=== PATIENT | male | born 1945 | race Caucasian/White ===

== ENCOUNTER 2016-09-11 18:54 | Emergency (ER) | payer MEDICARE, OTHER ==
[2016-09-11] MEDS ORDERED: Sodium Chloride 0.9% 10 ML Syringe FLUSH PRN (19:00)
--- NOTE | 2016-09-11 19:01 | EDM.PDOC ---
ED HISTORY OF PRESENT ILLNESS - General Chief Complaint: Chest Pain Stated Complaint: chest pain that started around 11am Time Seen by Provider: 09/11/16 18:59 Source of Information: Reports: Patient, Family, RN, RN notes reviewed History Limitations: Reports: No limitations - History of Present Illness INITIAL COMMENTS - FREE TEXT/NARRATIVE: Patient presents to the ED at [facility] complaining of chest pain that started around 11am today. Patient states he was sitting on the cough when he felt the pain start. Has mild SOB. No cardiac history. No radiation of the pain. Patient states he has been belching a lot today. No focal neurological deficits. Symptom Onset Date: 09/11/16 Symptom Onset Time: 11:00 Timing/Duration: Reports: Sudden onset, Waxing/waning Severity: moderate Location, General: Reports: chest Quality: Reports: Pressure Improves with: Reports: None Worsens with: Reports: None Context, General: Denies: Activity, Exercise, Lifting, Sick contact, Trauma Associated Symptoms (General): Reports: no other symptoms ED ROS GENERAL - Review of Systems Review Of Systems: See Below Constitutional: Denies: fever, chills, weakness Respiratory: Reports: Shortness of Breath. Denies: Cough Cardiovascular: Reports: Chest pain, Blood pressure problem. Denies: Lightheadedness, Palpitations GI/Abdominal: Denies: Abdominal pain, Nausea, Vomiting Skin: Reports: no symptoms Neurological: Denies: Dizziness, Headache, Numbness, Paresthesia, Tingling ED EXAM, GENERAL - Physical Exam Exam: See Below Exam Limited By: No limitations General Appearance: alert, no apparent distress Respiratory/Chest: no respiratory distress, lungs clear, normal breath sounds Cardiovascular: normal peripheral pulses, regular rate, rhythm, no edema Peripheral Pulses: 2+: radial (L), radial (R) GI/Abdominal: normal bowel sounds, soft, non tender Neurological: alert, oriented Skin Exam: Warm, Dry, Intact, Normal color, No rash EKG INTERPRETATION EKG Date: 09/11/16 Time: 18:51 Rhythm: NSR Rate (beats/min): 65 [place]: normal P-wave: present QRS: normal ST-T: normal QT: normal FL/PQ Interval: 0.15 Comparison: NA - no prior EKG EKG Interpretation Comments: 1. 18:51 Normal Sinus Rhythm Possible Septal infarct 2. 09/11/2016 19:27 Sinus Rhythm; possible septal infarct Course - Vital Signs Last Recorded V/S: Last Vital Signs Temp Pulse Resp BP 175/88 H 09/11/16 19:42 Pulse Ox - Orders/Labs/Meds Orders: Active Orders 24 hr Category Date Time Status EKG 12 Lead [EKG Documentation Completion] [RC] STAT Care 09/11/16 19:00 Active Chest 1V Frontal [CR] Stat Exams 09/11/16 19:44 Ordered Chest 2V [CR] Stat Exams 09/11/16 18:59 Stop Req CBC W/O DIFF,HEMOGRAM [HEME] Q3D Lab 09/12/16 07:00 Ordered CBC W/O DIFF,HEMOGRAM [HEME] Q3D Lab 09/15/16 07:00 Ordered CBC W/O DIFF,HEMOGRAM [HEME] Q3D Lab 09/18/16 07:00 Ordered CBC W/O DIFF,HEMOGRAM [HEME] Q3D Lab 09/21/16 07:00 Ordered CBC W/O DIFF,HEMOGRAM [HEME] Q3D Lab 09/24/16 07:00 Ordered CBC W/O DIFF,HEMOGRAM [HEME] Q3D Lab 09/27/16 07:00 Ordered CBC W/O DIFF,HEMOGRAM [HEME] Q3D Lab 09/30/16 07:00 Ordered Heparin Sodium/0.45% NaCl [Heparin 25,000 Units in 1/2 Med 09/11/16 20:00 Ordered NS 500 ML] 25,000 units in 500 ml IV TITRATE Sodium Chloride 0.9% [Saline Flush] Med 09/11/16 19:00 Active 10 ml FLUSH ASDIRECTED PRN Peripheral IV Insertion Adult [OM.PC] Routine Oth 09/11/16 19:00 Ordered Medication Orders Heparin Sodium/Sodium Chloride (Heparin 25,000 Units In 1/2 Ns 500 Ml) 25,000 units in 500 mls @ IV TITRATE VARINDER PRN Reason: 1,000 UNITS/KG/HR Sodium Chloride (Saline Flush) 10 ml FLUSH ASDIRECTED PRN PRN Reason: Keep Vein Open Last Admin: 09/11/16 19:25 Dose: 10 ml Labs: Laboratory Tests 09/11/16 09/11/16 09/11/16 Range/Units 19:10 19:10 19:16 WBC 11.3 H (4.0-10.0) x10^3/uL RBC 4.05 L (4.5-6.0) x10^6/uL Hgb 12.3 L (14.0-18.0) g/dL Hct 35.1 L (40.0-52.0) % MCV 86.7 (78.0-93.0) fL MCH 30.4 (26.0-32.0) pg MCHC 35.0 (32.0-36.0) g/dL RDW Coeff of Adrienne 13.1 (10.0-15.0) % Plt Count 208 (130-400) x10^3/uL Neut % (Auto) 64.9 (50.0-80.0) % Lymph % (Auto) 22.9 L (25.0-50.0) % [place] % (Auto) 9.1 (2.0-11.0) % Eos % (Auto) 2.4 (0.0-4.0) % Baso % (Auto) 0.7 (0.2-1.2) % Sodium 137 (136-145) mmol/L Potassium 4.1 (3.5-5.1) mmol/L Chloride 100 (98-107) mmol/L Carbon Dioxide 28 (21-32) mmol/L BUN 13 (7-18) mg/dL Creatinine 1.0 (0.70-1.30) mg/dL Est Cr Clr Drug Dosing TNP Estimated GFR (MDRD) > 60 Glucose 122 H (74-106) mg/dL Calcium 8.9 (8.5-10.1) mg/dL Creatine Kinase 534 H* (39-308) U/L Creatine Kinase Index 19.1 H (0.0-4.0) % CK-MB (CK-2) 102.1 H (0.0-3.6) ng/mL POC Troponin I 4.32 H* (0.00-0.08) ng/mL POC Result Comm Meds: Medications Generic Name Dose Route Start Last Admin Trade Name Freq PRN Reason Stop Dose Admin Heparin Sodium/Sodium Chloride 25,000 units in 500 mls @ 09/11/16 20:00 Heparin 25,000 Units In 1/2 Ns 500 Ml IV TITRATE VARINDER 1,000 UNITS/KG/HR Sodium Chloride 10 ml 09/11/16 19:00 09/11/16 19:25 Saline Flush FLUSH 10 ml ASDIRECTED PRN Administration Keep Vein Open Discontinued Medications Generic Name Dose Route Start Last Admin Trade Name [place] PRN Reason Stop Dose Admin Al Hydroxide/Mg Hydroxide 30 ml 09/11/16 19:13 09/11/16 19:32 Gi Cocktail PO 09/11/16 19:14 30 ml ONETIME ONE Administration Aspirin 324 mg 09/11/16 19:36 09/11/16 19:44 Aspirin PO 09/11/16 19:37 Not Given ONETIME ONE Aspirin 324 mg 09/11/16 19:54 Aspirin PO 09/11/16 19:55 ONETIME ONE Al Hydroxide/Mg Hydroxide 10 0 ml 09/11/16 19:07 09/11/16 19:32 ml/ Lidocaine HCl 10 ml/ PO 09/11/16 19:08 Not Given Promethazine HCl 12.5 mg ONETIME ONE Famotidine 20 mg 09/11/16 19:07 09/11/16 19:24 Pepcid IVPUSH 09/11/16 19:08 20 mg ONETIME ONE Administration Heparin Sodium (Porcine) 4,000 units 09/11/16 19:56 Heparin Sodium IVPUSH 09/11/16 19:57 ONETIME ONE Nitroglycerin 0.4 mg 09/11/16 19:38 09/11/16 19:42 Nitrostat SL 09/11/16 19:39 0.4 mg ONETIME ONE Administration Nitroglycerin 0.4 mg 09/11/16 19:54 Nitrostat SL 09/11/16 19:55 ONETIME ONE Pantoprazole Sodium 40 mg 09/11/16 19:07 09/11/16 19:25 Protonix Iv IVPUSH 09/11/16 19:08 40 mg ONETIME ONE Administration - Re-Assessments/Exams Free Text/Narrative Re-Assessment/Exam: 09/11/16 19:[address] Hanna, accepting provider [facility]. Family and patient updated on condition and transfer. Departure - Departure Time of Disposition: 20:02 Disposition: DC/Tfer to [facility] 02 Reason for Transfer *Q: Primary PCI Indicated Condition: fair Clinical Impression: Unstable angina, Troponin level elevated Forms: [facility] - ED Communication Date/Time Date: 09/11/16 Time Called: 19:53 - Discussed Case With (1) Discussed Case With (1): Admitting Provider (Dr. Hanna) - Conversation Summary Admitting Provider Agreed to Patient's Admission: Yes Summary Comment: Patient will be transferred to [facility]. Dr. Hanna is admitting provider. Full report given to accepting provider. - Problem List Review Problem List Initiated/Reviewed/Updated: Yes - My Orders Last 24 Hours: My Active Orders 09/11/16 18:59 Chest 2V [CR] Stat 09/11/16 19:00 EKG 12 Lead [EKG Documentation Completion] [RC] STAT Sodium Chloride 0.9% [Saline Flush] 10 ml FLUSH ASDIRECTED PRN Peripheral IV Insertion Adult [OM.PC] Routine 09/11/16 19:44 Chest 1V Frontal [CR] Stat 09/11/16 20:00 Heparin Sodium/0.45% NaCl [Heparin 25,000 Units in 1/2 NS 500 ML] 25,000 units in 500 ml IV TITRATE 09/12/16 07:00 CBC W/O DIFF,HEMOGRAM [HEME] Q3D 09/15/16 07:00 CBC W/O DIFF,HEMOGRAM [HEME] Q3D 09/18/16 07:00 CBC W/O DIFF,HEMOGRAM [HEME] Q3D 09/21/16 07:00 CBC W/O DIFF,HEMOGRAM [HEME] Q3D 09/24/16 07:00 CBC W/O DIFF,HEMOGRAM [HEME] Q3D 09/27/16 07:00 CBC W/O DIFF,HEMOGRAM [HEME] Q3D 09/30/16 07:00 CBC W/O DIFF,HEMOGRAM [HEME] Q3D - Assessment/Plan Last 24 Hours: My Active Orders 09/11/16 18:59 Chest 2V [CR] Stat 09/11/16 19:00 EKG 12 Lead [EKG Documentation Completion] [RC] STAT Sodium Chloride 0.9% [Saline Flush] 10 ml FLUSH ASDIRECTED PRN Peripheral IV Insertion Adult [OM.PC] Routine 09/11/16 19:44 Chest 1V Frontal [CR] Stat 09/11/16 20:00 Heparin Sodium/0.45% NaCl [Heparin 25,000 Units in 1/2 NS 500 ML] 25,000 units in 500 ml IV TITRATE 09/12/16 07:00 CBC W/O DIFF,HEMOGRAM [HEME] Q3D 09/15/16 07:00 CBC W/O DIFF,HEMOGRAM [HEME] Q3D 09/18/16 07:00 CBC W/O DIFF,HEMOGRAM [HEME] Q3D 09/21/16 07:00 CBC W/O DIFF,HEMOGRAM [HEME] Q3D 09/24/16 07:00 CBC W/O DIFF,HEMOGRAM [HEME] Q3D 09/27/16 07:00 CBC W/O DIFF,HEMOGRAM [HEME] Q3D 09/30/16 07:00 CBC W/O DIFF,HEMOGRAM [HEME] Q3D
[2016-09-11] MEDS ORDERED: Pantoprazole 40 MG Vial IVPUSH ONE (19:07)
[2016-09-11] MEDS ORDERED: Alum Hydroxide/Mag Hydroxide 10 ML, Lidocaine 2% 10 ML, Promethazine 12.5 MG PO ONE ×3 (19:07)
[2016-09-11] MEDS ORDERED: Famotidine 20 MG/2 ML SDV IVPUSH ONE (19:07)
[2016-09-11] MEDS ORDERED: GI Cocktail Oral Solution 30 ML PO ONE (19:13)
[2016-09-11] MEDS ORDERED: Aspirin 81 MG Tab.Chew PO ONE ×2 (19:36→19:54)
[2016-09-11] MEDS ORDERED: Nitroglycerin 0.4 MG Tab.SL SL ONE ×2 (19:38→19:54)
[2016-09-11 19:48] LABS: CHLORIDE,CL 100 mmol/L (98-107); SODIUM,NA 137 mmol/L (136-145)
[2016-09-11] MEDS ORDERED: Heparin Sodium 5,000 Units/ML Vial IVPUSH ONE (19:56)
[2016-09-11] MEDS ORDERED: Heparin Sodium/0.45% NaCl 25,000 UNITS/500 ML BAG IV SCH ×2 (20:00→20:15)
[2016-09-11 22:36] VITALS: BP 107/61
== END 2016-09-11 20:18 | disposition short-term general hospital (02) ==
LOC: SUPCPDRO 18:54 → VM.ED 18:54
DX: I20.0 Unstable angina (principal)
CPT/HCPCS: 36415; 71010; 80048; 82550; 82553; 84484; 85025; 93005; 96374; 96375; 96376; 99291; 99292; A9270; C9113; J1644; J7050; 99284-GF; S0028

== ENCOUNTER 2016-09-18 18:43 | Emergency (ER) | payer MEDICARE, OTHER ==
--- NOTE | 2016-09-18 19:05 | EDM.PDOC ---
ED HPI GENERAL MEDICAL PROBLEM - General Chief Complaint: Genitourinary Problem Stated Complaint: Hematuria Time Seen by Provider: 09/18/16 18:50 Source of Information: Reports: Patient, Family, RN, RN Notes Reviewed History Limitations: Reports: No Limitations - History of Present Illness INITIAL COMMENTS - FREE TEXT/NARRATIVE: Patient presents to the emergency room at [facility] complaining of blood in his urine. The patient states that his symptoms began a couple of hours ago. The patient states that he initially voids his urine is red colored but clears toward the end of voiding. The patient recently had a TURP a couple of weeks ago. The patient also had cardiac stents placed last week. He is currently taking Plavix. The patient states he has not had any problems with urination or prostate related issues since his have a TURP. The patient states that he called ask a nurse Jimmy Caldera and they recommended he be seen in the ER. Onset: Today Onset Date: 09/18/16 - Related Data Allergies Allergy/AdvReac Type Severity Reaction Status Date / Time amoxicillin Allergy Other Verified 09/18/16 19:28 clindamycin [From Cleocin] Allergy Other Verified 09/18/16 19:28 Home Meds: Home Meds Acetaminophen [Tylenol Arthritis] 650 mg PO TID 09/11/16 [History] Aspirin [Halfprin] 162 mg PO DAILY 09/11/16 [History] Ciprofloxacin HCl [Cipro] 250 mg PO BID 09/11/16 [History] Hydrocodone/Acetaminophen [Hydrocodon-Acetaminophen 5-325] 1 each PO QID PRN 10/23 [History] Hydrocortisone [Proctosol-HC] 28.35 gm RC DAILY PRN 09/11/16 [History] Multivits,Ca,Min/Iron/FA/Lycop [Centrum Ultra Men's Tablet] 1 each PO DAILY 10/23 [History] Pravastatin Sodium [Pravastatin (Pravachol)] 40 mg PO BEDTIME 09/11/16 [History] Tamsulosin HCl [Flomax] 0.4 mg PO DAILY 09/11/16 [History] Past Medical History Cardiovascular History: Reports: High Cholesterol, Other (See Below) Other Cardiovascular History: Unspecified mitral valve diseases Respiratory History: Reports: Asthma Genitourinary History: Reports: Prostate Disorder, Other (See Below) Other Genitourinary History: Laser Vaporization of Prostate. Erectile dysfunction Musculoskeletal History: Reports: Back Pain, Chronic, Other (See Below) Other Musculoskeletal History: Bursitis of right shoulder. Closed fracture of part of fibula Psychiatric History: Reports: Anxiety Social & Family History - Tobacco Use Smoking Status *Q: Never Smoker - Caffeine Use Caffeine Use: Reports: Coffee - Recreational Drug Use Recreational Drug Use: No ED ROS GENERAL - Review of Systems Review Of Systems: See Below Constitutional: Denies: Fever, Chills, Weakness Respiratory: Denies: Shortness of Breath, Cough Cardiovascular: Reports: Lightheadedness. Denies: Chest Pain, Dyspnea on Exertion, Palpitations GI/Abdominal: Reports: No Symptoms : Reports: Hematuria Skin: Reports: No Symptoms Neurological: Reports: No Symptoms ED EXAM, RENAL/ - Physical Exam Exam: See Below Exam Limited By: No Limitations General Appearance: Alert, No Apparent Distress Respiratory/Chest: No Respiratory Distress, Lungs Clear, Normal Breath Sounds Cardiovascular: Regular Rate, Rhythm GI/Abdominal: Normal Bowel Sounds, Soft, Non-Tender (Male) Exam: Deferred Neurological: Alert, Oriented Skin Exam: Warm, Dry, Intact, Normal Color, No Rash Course - Vital Signs Last Recorded V/S: Last Vital Signs Temp 36.6 C 09/18/16 18:50 Pulse 73 09/18/16 18:50 Resp 16 09/18/16 18:50 BP 165/85 H 09/18/16 18:50 Pulse Ox 98 09/18/16 18:50 - Orders/Labs/Meds Labs: Laboratory Tests 09/18/16 09/18/16 09/18/16 Range/Units 19:02 19:30 19:30 WBC 10.5 H (4.0-10.0) x10^3/uL RBC 3.72 L (4.5-6.0) x10^6/uL Hgb 11.4 L (14.0-18.0) g/dL Hct 32.2 L (40.0-52.0) % MCV 86.6 (78.0-93.0) fL MCH 30.6 (26.0-32.0) pg MCHC 35.4 (32.0-36.0) g/dL RDW Coeff of Adrienne 12.7 (10.0-15.0) % Plt Count 256 (130-400) x10^3/uL Neut % (Auto) 56.3 (50.0-80.0) % Lymph % (Auto) 32.1 (25.0-50.0) % [place] % (Auto) 8.1 (2.0-11.0) % Eos % (Auto) 2.6 (0.0-4.0) % Baso % (Auto) 0.9 (0.2-1.2) % Sodium 133 L (136-145) mmol/L Potassium 4.1 (3.5-5.1) mmol/L Chloride 97 L (98-107) mmol/L Carbon Dioxide 26 (21-32) mmol/L BUN 19 H (7-18) mg/dL Creatinine 1.0 (0.70-1.30) mg/dL Est Cr Clr Drug Dosing 67.75 mL/min Estimated GFR (MDRD) > 60 Glucose 102 (74-106) mg/dL Calcium 8.9 (8.5-10.1) mg/dL Urine Color [place] H (YELLOW) Urine Appearance Slightly cloudy H (CLEAR) Urine pH 5.5 (5.0-8.0) Ur Specific [place] <=1.005 Urine Protein 100 H (NEGATIVE) mg/dL Urine Glucose (UA) Negative (NEGATIVE) mg/dL Urine Ketones Negative (NEGATIVE) mg/dL Urine Occult Blood Large H (NEGATIVE) Urine Nitrite Negative (NEGATIVE) Urine Bilirubin Negative (NEGATIVE) Urine Urobilinogen 0.2 (0.2) EU/dL Ur Leukocyte Esterase Small H (NEGATIVE) Urine RBC 10-20 H (NOT SEEN) /HPF Urine WBC 5-10 H (NOT SEEN) /HPF Ur Squamous Epith Cells Not seen (NEGATIVE) /HPF Urine Bacteria Rare (NEGATIVE) /HPF Urine Mucus Few H (NEGATIVE) /LPF Departure - Departure Time of Disposition: 19:59 Disposition: Home, Self-Care 01 Condition: good Clinical Impression: Hematuria, unspecified - Discharge Information Instructions: Hematuria, Adult Referrals: Patel Foley MD [Primary Care Provider] - Forms: ED Department Discharge Additional Instructions: 1. Stay well hydrated and rest 2. Blood work and urine was ok 3. Keep appointment with your PCP this Tuesday 4. Return as symptoms warrant - Problem List Review Problem List Initiated/Reviewed/Updated: Yes
[2016-09-18 19:49] VITALS: BP 165/85
[2016-09-18 19:51] LABS: CHLORIDE,CL 97 mmol/L (98-107); SODIUM,NA 133 mmol/L (136-145)
== END 2016-09-18 20:18 | disposition home or self-care (01) ==
LOC: VM.ED 18:43
DX: R31.9 Hematuria, unspecified (principal); J45.909 Unspecified asthma, uncomplicated; E78.00 Pure hypercholesterolemia, unspecified; F41.9 Anxiety disorder, unspecified; Z79.82 Long term (current) use of aspirin; Z88.1 Allergy status to other antibiotic agents
CPT/HCPCS: 36415; 80048; 81001; 85025; 99282-GF; 99283

== ENCOUNTER 2017-10-05 20:52 | Emergency (ER) | payer MEDICARE, OTHER ==
--- NOTE | 2017-10-05 21:10 | EDM.PDOC ---
<TylerVenkatesh fuller W - Last Filed: 10/05/17 21:01> ED HPI GENERAL MEDICAL PROBLEM - General Chief Complaint: Cardiovascular Problem Stated Complaint: chest pain, short of breath Time Seen by Provider: 10/05/17 20:55 Source of Information: Reports: Patient, Family History Limitations: Reports: No Limitations - History of Present Illness INITIAL COMMENTS - FREE TEXT/NARRATIVE: Pt. presents to ER with complaints of chest pain that started approx. 30 min. prior to coming in to the ER. He states that it is substernal in nature and doesn't radiate. He has a history of CAD and had 4 stents placed following an DC in September 2016. He states that he has been experiencing increased BURTON and fatigability. He states that he took 2 nitro before coming to the ER. States that the discomfort is respirophasic in nature and does not radiate in jaw, arm, neck or back. - Related Data Allergies Allergy/AdvReac Type Severity Reaction Status Date / Time amoxicillin Allergy Rash Verified 10/05/17 21:59 atorvastatin [From Lipitor] Allergy Muscle Verified 10/05/17 21:46 Aches clindamycin [From Cleocin] Allergy Rash Verified 10/05/17 21:58 Home Meds: Home Meds Acetaminophen [Tylenol Arthritis] 650 mg PO TID PRN 09/11/16 [History] Hydrocortisone [Proctosol-HC] 28.35 gm RC DAILY PRN 09/11/16 [History] Multivits,Ca,Min/Iron/FA/Lycop [Centrum Ultra Men's Tablet] 1 each PO DAILY 10/23 [History] Aspirin [Adult Low Dose Aspirin EC] 81 mg PO DAILY 09/23/16 [History] Calcium Carbonate/Vitamin D3 [Caltrate-600 with Vit D Tab] 1 each PO DAILY 09/23 [History] Clopidogrel [Plavix] 75 mg PO DAILY 09/23/16 [History] Metoprolol Succinate [Toprol Xl] 25 mg PO DAILY 09/23/16 [History] Nitroglycerin [Nitrostat] 0.4 mg SL ASDIRECTED PRN 09/23/16 [History] Rosuvastatin [Crestor] 20 mg PO DAILY 09/23/16 [History] Past Medical History Cardiovascular History: Reports: High Cholesterol, Other (See Below) Other Cardiovascular History: Unspecified mitral valve diseases Respiratory History: Reports: Asthma Genitourinary History: Reports: Prostate Disorder, Other (See Below) Other Genitourinary History: Laser Vaporization of Prostate. Erectile dysfunction Musculoskeletal History: Reports: Back Pain, Chronic, Other (See Below) Other Musculoskeletal History: Bursitis of right shoulder. Closed fracture of part of fibula Psychiatric History: Reports: Anxiety Social & Family History - Caffeine Use Caffeine Use: Reports: Coffee Course - Vital Signs Last Recorded V/S: Last Vital Signs Temp 36.5 C 10/05/17 21:04 Pulse 59 L 10/05/17 21:37 Resp 22 H 10/05/17 21:37 BP 104/60 10/05/17 21:37 Pulse Ox 94 L 10/05/17 21:37 - Orders/Labs/Meds Orders: Active Orders 24 hr Category Date Time Status EKG Documentation Completion [RC] STAT Care 10/05/17 20:59 Active Chest 2V [CR] Stat Exams 10/05/17 20:59 Ordered Sodium Chloride 0.9% [Saline Flush] Med 10/05/17 20:59 Active 10 ml FLUSH ASDIRECTED PRN Peripheral IV Insertion Adult [OM.PC] Routine Oth 10/05/17 20:59 Ordered Medication Orders Sodium Chloride (Saline Flush) 10 ml FLUSH ASDIRECTED PRN PRN Reason: Keep Vein Open Last Admin: 10/05/17 21:40 Dose: 10 ml Labs: Laboratory Tests 10/05/17 10/05/17 10/05/17 Range/Units 21:18 21:18 21:18 WBC 7.7 (4.0-10.0) x10^3/uL RBC 3.68 L (4.5-6.0) x10^6/uL Hgb 11.5 L (14.0-18.0) g/dL Hct 33.3 L (40.0-52.0) % MCV 90.5 D (78.0-93.0) fL MCH 31.3 (26.0-32.0) pg MCHC 34.5 (32.0-36.0) g/dL RDW Coeff of Adrienne 12.9 (10.0-15.0) % Plt Count 175 D (130-400) x10^3/uL Neut % (Auto) 38.4 L (50.0-80.0) % Lymph % (Auto) 46.3 (25.0-50.0) % [place] % (Auto) 10.8 (2.0-11.0) % Eos % (Auto) 3.3 (0.0-4.0) % Baso % (Auto) 1.2 (0.2-1.2) % PT 9.9 (9.6-11.4) SEC INR 0.9 L (2.0-3.5) D-Dimer, Quantitative (<=0.58) mg/LFEU Sodium 135 L (136-145) mmol/L Potassium 3.8 (3.5-5.1) mmol/L Chloride 104 (98-107) mmol/L Carbon Dioxide 26 (21-32) mmol/L Anion Gap 8.8 L (10-20) mmol/L BUN 18 (7-18) mg/dL Creatinine 1.2 (0.70-1.30) mg/dL Est Cr Clr Drug Dosing 55.64 mL/min Estimated GFR (MDRD) 60 Glucose 130 H (74-106) mg/dL Calcium 8.4 L (8.5-10.1) mg/dL Corrected Calcium 8.88 (8.5-10.1) mg/dL Phosphorus (2.6-4.7) mg/dL Magnesium (1.8-2.4) mg/dL Total Bilirubin 0.4 (0.2-1.0) mg/dL AST 25 (15-37) U/L ALT 32 (16-63) U/L Alkaline Phosphatase 113 (46-116) U/L POC Troponin I (0.00-0.08) ng/mL C-Reactive Protein < 0.2 (<=0.9) mg/dL NT-Pro-B Natriuret Pep (<=125) pg/mL Total Protein 6.2 L (6.4-8.2) g/dL Albumin 3.4 (3.4-5.0) g/dL Globulin 2.8 Albumin/Globulin Ratio 1.21 10/05/17 10/05/17 10/05/17 Range/Units 21:18 21:18 21:25 WBC (4.0-10.0) x10^3/uL RBC (4.5-6.0) x10^6/uL Hgb (14.0-18.0) g/dL Hct (40.0-52.0) % MCV (78.0-93.0) fL MCH (26.0-32.0) pg MCHC (32.0-36.0) g/dL RDW Coeff of Adrienne (10.0-15.0) % Plt Count (130-400) x10^3/uL Neut % (Auto) (50.0-80.0) % Lymph % (Auto) (25.0-50.0) % [place] % (Auto) (2.0-11.0) % Eos % (Auto) (0.0-4.0) % Baso % (Auto) (0.2-1.2) % PT (9.6-11.4) SEC INR (2.0-3.5) D-Dimer, Quantitative < 0.19 (<=0.58) mg/LFEU Sodium (136-145) mmol/L Potassium (3.5-5.1) mmol/L Chloride (98-107) mmol/L Carbon Dioxide (21-32) mmol/L Anion Gap (10-20) mmol/L BUN (7-18) mg/dL Creatinine (0.70-1.30) mg/dL Est Cr Clr Drug Dosing mL/min Estimated GFR (MDRD) Glucose (74-106) mg/dL Calcium (8.5-10.1) mg/dL Corrected Calcium (8.5-10.1) mg/dL Phosphorus 4.0 (2.6-4.7) mg/dL Magnesium 2.1 (1.8-2.4) mg/dL Total Bilirubin (0.2-1.0) mg/dL AST (15-37) U/L ALT (16-63) U/L Alkaline Phosphatase (46-116) U/L POC Troponin I 0.01 (0.00-0.08) ng/mL C-Reactive Protein (<=0.9) mg/dL NT-Pro-B Natriuret Pep 104 (<=125) pg/mL Total Protein (6.4-8.2) g/dL Albumin (3.4-5.0) g/dL Globulin Albumin/Globulin Ratio Meds: Medications Generic Name Dose Route Start Last Admin Trade Name Freq PRN Reason Stop Dose Admin Sodium Chloride 10 ml 10/05/17 20:59 10/05/17 21:40 Saline Flush FLUSH 10 ml ASDIRECTED PRN Administration Keep Vein Open Discontinued Medications Generic Name Dose Route Start Last Admin Trade Name [place] PRN Reason Stop Dose Admin Aspirin 324 mg 10/05/17 21:33 10/05/17 21:36 Aspirin PO 10/05/17 21:34 324 mg ONETIME ONE Administration Methylprednisolone Sodium Succinate 125 mg 10/05/17 21:34 10/05/17 21:40 Solu-Medrol IVPUSH 10/05/17 21:35 125 mg ONETIME ONE Administration Departure - Departure Disposition: Home, Self-Care 01 Clinical Impression: Chest pain, Unstable angina - Discharge Information Instructions: Chest Wall Pain, [id number] Referrals: Patel Foley MD [Primary Care Provider] - Forms: ED Department Discharge Additional Instructions: Please return in the AM for a repeat Troponin draw. I would advise calling your sheet metal worker apprentice to see if they will be able to get you in office before October 13. Your chest pain tonight is likely caused by inflammation. I did give you 125 mg of Solu-medrol which seems to have resolved your pain. I will give you a prescription for 20 mg of daily prednisone for 3 days. Take with food. Please call us with any questions or any concerns. <Fer Garcia - Last Filed: 10/05/17 22:32> ED HPI GENERAL MEDICAL PROBLEM - History of Present Illness INITIAL COMMENTS - FREE TEXT/NARRATIVE: Additionally, he did have a follow up appointment with his sheet metal worker apprentice that he was unable to make. He scheduled this in regards to the increasing shortness of breath that he has been experiencing over the last month or so. He denies any respiratory issues such as COPD, asthma, or allergies. He also has had 2 procedures to reduce the size of his prostate. Patient does state he has a headache but that he had one before he took his 2 nitros. Additional review of systems; patient denies numbness or tingling to the back jaw or arm. He also denies pain in these locations. Denies blood in his urine and stool. Patient denies any abdominal pain nausea or vomiting. All extremities move within normal range of motion. He isn't experiencing any numbness or tingling to any extremities. Due to his coronary artery disease he is still on Plavix. Onset: Sudden Onset Date: 10/05/17 Onset Time: 20:30 Duration: Getting Worse Location: Reports: Chest Severity: Moderate Associated Symptoms: Reports: Shortness of Breath ED ROS GENERAL - Review of Systems Review Of Systems: See Below Constitutional: Reports: No Symptoms HEENT: Reports: No Symptoms Respiratory: Reports: Shortness of Breath, Other (increased pain on inspiration) Cardiovascular: Reports: Chest Pain Endocrine: Reports: No Symptoms GI/Abdominal: Reports: No Symptoms : Reports: No Symptoms Musculoskeletal: Reports: No Symptoms Skin: Reports: No Symptoms Neurological: Reports: No Symptoms Psychiatric: Reports: No Symptoms Hematologic/Lymphatic: Reports: No Symptoms Immunologic: Reports: No Symptoms ED EXAM, GENERAL - Physical Exam Exam: See Below Exam Limited By: No Limitations General Appearance: Alert, WD/WN, No Apparent Distress Eye Exam: Bilateral Eye: EOMI, Normal Inspection, PERRL Throat/Mouth: Normal Inspection, Normal Lips, Normal Teeth, Normal Gums, Normal Oropharynx, Normal Voice, No Airway Compromise Head: Atraumatic, Normocephalic Neck: Normal Inspection, Supple, Non-Tender, Full Range of Motion Respiratory/Chest: No Respiratory Distress, Lungs Clear, Normal Breath Sounds, No Accessory Muscle Use, Chest Non-Tender Cardiovascular: Normal Peripheral Pulses, Regular Rate, Rhythm, No Edema, No Gallop, No JVD, No Murmur, No Rub Peripheral Pulses: 2+: Radial (L), Radial (R), Posterior Tibial (L), Posterior Tibial (R), Dorsalis Pedis (L), Dorsalis Pedis (R) GI/Abdominal: Normal Bowel Sounds, Soft, Non-Tender, No Organomegaly, No Distention, No Abnormal Bruit, No Mass Back Exam: Normal Inspection, Full Range of Motion, NT Extremities: Normal Inspection, Normal Range of Motion, Non-Tender, Normal Capillary Refill, No Pedal Edema Neurological: Alert, Oriented, CN II-XII Intact, Normal Cognition, Normal Gait, Normal Reflexes, No Motor/Sensory Deficits Psychiatric: Normal Affect, Normal Mood Skin Exam: Warm, Dry, Intact, Normal Color, No Rash Course - Orders/Labs/Meds Labs: Laboratory Tests 10/05/17 10/05/17 10/05/17 Range/Units 21:18 21:18 21:18 WBC 7.7 (4.0-10.0) x10^3/uL RBC 3.68 L (4.5-6.0) x10^6/uL Hgb 11.5 L (14.0-18.0) g/dL Hct 33.3 L (40.0-52.0) % MCV 90.5 D (78.0-93.0) fL MCH 31.3 (26.0-32.0) pg MCHC 34.5 (32.0-36.0) g/dL RDW Coeff of Adrienne 12.9 (10.0-15.0) % Plt Count 175 D (130-400) x10^3/uL Neut % (Auto) 38.4 L (50.0-80.0) % Lymph % (Auto) 46.3 (25.0-50.0) % [place] % (Auto) 10.8 (2.0-11.0) % Eos % (Auto) 3.3 (0.0-4.0) % Baso % (Auto) 1.2 (0.2-1.2) % PT 9.9 (9.6-11.4) SEC INR 0.9 L (2.0-3.5) D-Dimer, Quantitative (<=0.58) mg/LFEU Sodium 135 L (136-145) mmol/L Potassium 3.8 (3.5-5.1) mmol/L Chloride 104 (98-107) mmol/L Carbon Dioxide 26 (21-32) mmol/L Anion Gap 8.8 L (10-20) mmol/L BUN 18 (7-18) mg/dL Creatinine 1.2 (0.70-1.30) mg/dL Est Cr Clr Drug Dosing 55.64 mL/min Estimated GFR (MDRD) 60 Glucose 130 H (74-106) mg/dL Calcium 8.4 L (8.5-10.1) mg/dL Corrected Calcium 8.88 (8.5-10.1) mg/dL Phosphorus (2.6-4.7) mg/dL Magnesium (1.8-2.4) mg/dL Total Bilirubin 0.4 (0.2-1.0) mg/dL AST 25 (15-37) U/L ALT 32 (16-63) U/L Alkaline Phosphatase 113 (46-116) U/L POC Troponin I (0.00-0.08) ng/mL C-Reactive Protein < 0.2 (<=0.9) mg/dL NT-Pro-B Natriuret Pep (<=125) pg/mL Total Protein 6.2 L (6.4-8.2) g/dL Albumin 3.4 (3.4-5.0) g/dL Globulin 2.8 Albumin/Globulin Ratio 1.21 10/05/17 10/05/17 10/05/17 Range/Units 21:18 21:18 21:25 WBC (4.0-10.0) x10^3/uL RBC (4.5-6.0) x10^6/uL Hgb (14.0-18.0) g/dL Hct (40.0-52.0) % MCV (78.0-93.0) fL MCH (26.0-32.0) pg MCHC (32.0-36.0) g/dL RDW Coeff of Adrienne (10.0-15.0) % Plt Count (130-400) x10^3/uL Neut % (Auto) (50.0-80.0) % Lymph % (Auto) (25.0-50.0) % [place] % (Auto) (2.0-11.0) % Eos % (Auto) (0.0-4.0) % Baso % (Auto) (0.2-1.2) % PT (9.6-11.4) SEC INR (2.0-3.5) D-Dimer, Quantitative < 0.19 (<=0.58) mg/LFEU Sodium (136-145) mmol/L Potassium (3.5-5.1) mmol/L Chloride (98-107) mmol/L Carbon Dioxide (21-32) mmol/L Anion Gap (10-20) mmol/L BUN (7-18) mg/dL Creatinine (0.70-1.30) mg/dL Est Cr Clr Drug Dosing mL/min Estimated GFR (MDRD) Glucose (74-106) mg/dL Calcium (8.5-10.1) mg/dL Corrected Calcium (8.5-10.1) mg/dL Phosphorus 4.0 (2.6-4.7) mg/dL Magnesium 2.1 (1.8-2.4) mg/dL Total Bilirubin (0.2-1.0) mg/dL AST (15-37) U/L ALT (16-63) U/L Alkaline Phosphatase (46-116) U/L POC Troponin I 0.01 (0.00-0.08) ng/mL C-Reactive Protein (<=0.9) mg/dL NT-Pro-B Natriuret Pep 104 (<=125) pg/mL Total Protein (6.4-8.2) g/dL Albumin (3.4-5.0) g/dL Globulin Albumin/Globulin Ratio Departure - Departure Time of Disposition: 22:26 Condition: Good - Problem List & Annotations (1) Chest pain SNOMED Code(s): 20389123 Code(s): R07.9 - CHEST PAIN, UNSPECIFIED Status: Acute Priority: Medium Current Visit: Yes Qualifiers: Chest pain type: chest pain on breathing Qualified Code(s): R07.1 - Chest pain on breathing; R07.81 - Pleurodynia - Problem List Review Problem List Initiated/Reviewed/Updated: Yes - Assessment/Plan Assessment:: inspiratory chest pain Plan: Please return in the AM for a repeat Troponin draw. I would advise calling your sheet metal worker apprentice to see if they will be able to get you in office before October 13. Your chest pain tonight is likely caused by inflammation. I did give you 125 mg of Solu-medrol which seems to have resolved your pain. I will give you a prescription for 20 mg of daily prednisone for 3 days. Take with food. Please call us with any questions or any concerns.
[2017-10-05] MEDS: Aspirin 81 MG Tab.Chew PO ONE (21:36)
[2017-10-05] MEDS: Sodium Chloride 0.9% 10 ML Syringe FLUSH PRN (21:40)
[2017-10-05] MEDS: methylPREDNISolone Sodium Succinate 125 MG/2 ML SDV IVPUSH ONE (21:40)
[2017-10-05 21:47] VITALS: BP 104/60
[2017-10-05 21:49] LABS: CHLORIDE,CL 104 mmol/L (98-107)
[2017-10-05 21:56] LABS: SODIUM,NA 135 mmol/L (136-145)
== END 2017-10-05 22:36 | disposition home or self-care (01) ==
LOC: VM.ED 20:52
DX: I20.0 Unstable angina (principal); E78.00 Pure hypercholesterolemia, unspecified; J45.909 Unspecified asthma, uncomplicated; Z88.1 Allergy status to other antibiotic agents; Z88.8 Allergy status to other drugs, medicaments and biological substances; Z79.899 Other long term (current) drug therapy
CPT/HCPCS: 71046; 80053; 83735; 83880; 84100; 84484; 85025; 85379; 85610; 86140; 93005; 96374; 99284-GF; 99285; A9270-GY; J2930; J7050

== ENCOUNTER 2018-10-22 21:04 | Emergency (ER) | payer MEDICARE, OTHER ==
--- NOTE | 2018-10-22 21:19 | EDM.PDOC ---
ED HPI GENERAL MEDICAL PROBLEM - General Stated Complaint: HEADACHE INDIGESTION Time Seen by Provider: 10/22/18 21:19 Source of Information: Reports: Patient, Family History Limitations: Reports: No Limitations - History of Present Illness INITIAL COMMENTS - FREE TEXT/NARRATIVE: The patient admits that he has not been keeping a bland diet. He also has not been taking a proton pump inhibitor. We did give him a GI cocktail and that did help with his indigestion. We did an EKG because he has had cardiac issues in the past. EKG looked okay. The patient's headache did improve with a shot of Toradol. End indigestion did come back but we did recommend Maalox. He also received a half a milligram of Dilaudid. He has had a MRI he has had a biopsy. He will have a really bad headache like this about every 6 weeks but he does have daily headaches throughout the week about 5 out of 7 days. He is accompanied by his who is very supportive. He says that the treatment did not help very much the last time that he was here but this time it did seem to make a difference. The headache is about the occipital and about the frontal aspects and caused pressure without any aura. Onset: Today Duration: Getting Worse Location: Denies: Radiates to Quality: Reports: Dull, Pressure Severity: Severe Improves with: Reports: None Worsens with: Reports: Movement (And sitting up) Context: Reports: Other (No trigger per se) Associated Symptoms: Reports: Loss of Appetite headache Pain Score (Numeric/FACES): 9 - Related Data Allergies Allergy/AdvReac Type Severity Reaction Status Date / Time amoxicillin Allergy Rash Verified 10/22/18 21:27 atorvastatin [From Lipitor] Allergy Muscle Verified 10/22/18 21:27 Aches clindamycin [From Cleocin] Allergy Rash Verified 10/22/18 21:27 Home Meds: Home Meds Acetaminophen [Tylenol Arthritis] 650 mg PO Q8H PRN 09/11/16 [History] Hydrocortisone [Proctosol-HC] 28.35 gm RC DAILY PRN 09/11/16 [History] Multivits,Ca,Min/Iron/FA/Lycop [Centrum Ultra Men's Tablet] 1 each PO DAILY 10/23 [History] Aspirin [Adult Low Dose Aspirin EC] 81 mg PO DAILY 09/23/16 [History] Calcium Carbonate/Vitamin D3 [Caltrate 600 Plus D3 Tablet] 1 each PO DAILY 09/23 [History] Clopidogrel [Plavix] 75 mg PO DAILY 09/23/16 [History] Metoprolol Succinate [Toprol Xl] 25 mg PO DAILY 09/23/16 [History] Nitroglycerin [Nitrostat] 0.4 mg SL ASDIRECTED PRN 09/23/16 [History] Rosuvastatin [Crestor] 20 mg PO DAILY 09/23/16 [History] Finasteride 1 tab PO DAILY 05/05/18 [History] Calcium Carbonate [Tums] 2 tab PO DAILY PRN 10/22/18 [History] Mag Carb/Al Hydrox/Alginic Ac [Gaviscon Liquid] 5 ml PO Q4H PRN 10/22/18 [ History] Naproxen Sodium [Aleve] 1 tab PO Q6HR PRN 10/22/18 [History] Past Medical History Cardiovascular History: Reports: CAD, High Cholesterol, [place], Other (See Below) Other Cardiovascular History: Unspecified mitral valve diseases Respiratory History: Reports: Asthma Genitourinary History: Reports: BPH, Prostate Disorder, Retention, Urinary, Other (See Below) Other Genitourinary History: Bladder neck contracture. Erectile dysfunction Musculoskeletal History: Reports: Back Pain, Chronic, Other (See Below) Other Musculoskeletal History: Bursitis of right shoulder. Closed fracture of part of fibula Psychiatric History: Reports: Anxiety - Past Surgical History HEENT Surgical History: Reports: Other (See Below) Other HEENT Surgeries/Procedures: vitrectomy of Left eye Cardiovascular Surgical History: Reports: Coronary Artery Stent Male Surgical History: Reports: TURP-Transurethral Resection of Prostate, Other (See Below) Other Male Surgeries/Procedures: Laser Vaporization of Prostate Social & Family History - Family History Family Medical History: Noncontributory - Caffeine Use Caffeine Use: Reports: Coffee ED ROS GENERAL - Review of Systems Review Of Systems: ROS reveals no pertinent complaints other than HPI. - Physical Exam Exam: See Below Exam Limited By: No Limitations General Appearance: Alert, Moderate Distress Eye Exam: Bilateral Eye: EOMI, Normal Fundi, Normal Inspection Head Exam: Scalp Tenderness (Frontal and occipital) Neck: Normal Inspection, Supple, Non-Tender, Full Range of Motion Respiratory/Chest: No Respiratory Distress, Lungs Clear, Normal Breath Sounds, No Accessory Muscle Use, Chest Non-Tender Cardiovascular: Normal Peripheral Pulses, Regular Rate, Rhythm, No Edema, No Gallop, No JVD, No Murmur, No Rub GI/Abdominal: Normal Bowel Sounds, Soft, Non-Tender, No Organomegaly, No Distention, No Abnormal Bruit, No Mass Neuro Exam (Abbreviated): Alert, Oriented Back Exam: Normal Inspection, Full Range of Motion Extremities: Normal Inspection Psychiatric: Normal Affect Course - Vital Signs Last Recorded V/S: Last Vital Signs Temp 36.7 C 10/22/18 22:05 Pulse 63 10/22/18 22:05 Resp 18 10/22/18 22:05 BP 135/71 10/22/18 22:05 Pulse Ox 96 10/22/18 22:05 - Orders/Labs/Meds Orders: Active Orders 24 hr Category Date Time Status EKG 12 Lead [EKG Documentation Completion] [RC] STAT Care 10/22/18 21:18 Active Meds: Medications Discontinued Medications Generic Name Dose Route Start Last Admin Trade Name [place] PRN Reason Stop Dose Admin Al Hydroxide/Mg Hydroxide 30 ml 10/22/18 21:46 10/22/18 21:53 Gi Cocktail PO 10/22/18 21:47 30 ml ONETIME ONE Administration Hydromorphone HCl 0.5 mg 10/22/18 22:10 10/22/18 22:20 Dilaudid IM 10/22/18 22:11 0.5 mg ONETIME ONE Administration Ketorolac Tromethamine 30 mg 10/22/18 21:45 10/22/18 22:11 Toradol IVPUSH 10/22/18 21:46 Not Given ONETIME ONE Ketorolac Tromethamine 60 mg 10/22/18 21:48 10/22/18 21:59 Toradol IM 10/22/18 21:49 60 mg ONETIME ONE Administration Departure - Departure Time of Disposition: 21:54 Disposition: Home, Self-Care 01 Condition: Good, Fair Clinical Impression: Migraine - Discharge Information *PRESCRIPTION DRUG MONITORING PROGRAM REVIEWED*: No *COPY OF PRESCRIPTION DRUG MONITORING REPORT IN PATIENT KATARZYNA: No Instructions: Indigestion, [id number], Migraine Headache, [id number], Recurrent Migraine Headache, [id number] Referrals: Patel Foley MD [Primary Care Provider] - Forms: ED Department Discharge Additional Instructions: You received toradol today and a GI solution. Follow-up with your primary as needed. - My Orders Last 24 Hours: My Active Orders 10/22/18 21:18 EKG 12 Lead [EKG Documentation Completion] [RC] STAT - Assessment/Plan Last 24 Hours: My Active Orders 10/22/18 21:18 EKG 12 Lead [EKG Documentation Completion] [RC] STAT
[2018-10-22] MEDS ORDERED: Ketorolac 30 MG/ML SDV IVPUSH ONE (21:45)
[2018-10-22] MEDS ORDERED: GI Cocktail Oral Solution 30 ML PO ONE (21:46)
[2018-10-22] MEDS ORDERED: Ketorolac 60 MG/2 ML SDV IM ONE (21:48)
[2018-10-22 22:10] VITALS: BP 135/71
[2018-10-22] MEDS ORDERED: HYDROmorphone 1 MG/ML Syringe IM ONE (22:10)
== END 2018-10-22 22:36 | disposition home or self-care (01) ==
LOC: VM.ED 21:04
DX: G43.909 Migraine, unspecified, not intractable, without status migrainosus (principal); K30 Functional dyspepsia; I25.10 Atherosclerotic heart disease of native coronary artery without angina pectoris; I25.2 Old myocardial infarction; Z79.82 Long term (current) use of aspirin; Z79.899 Other long term (current) drug therapy; Z88.1 Allergy status to other antibiotic agents; Z88.8 Allergy status to other drugs, medicaments and biological substances
CPT/HCPCS: 93005; 96372; 99283-25; 99284-GF; A9270-GY; J1170; J1885

== ENCOUNTER 2019-12-13 08:16 | Day surgery (SDC) | payer MEDICARE, OTHER ==
[~2019-12-13 08:16] MED LIST: Lactated Ringers 1,000 ML IV SCH
[2019-12-13] MEDS ORDERED: Propofol 200 MG/20 ML SDV ONE (09:26)
[2019-12-13] MEDS ORDERED: fentaNYL 100 MCG/2 ML SDV ONE (09:26)
[2019-12-13 10:20] VITALS: PULSE 54
[2019-12-13 10:30] VITALS: BP 105/71
--- NOTE | 2019-12-13 13:46 | OR ---
DATE OF SURGERY: 12/13/2019. REFERRING PROVIDER: Patel Foley MD PRE-OPERATIVE DIAGNOSES: Screening colonoscopy. There is a positive family history of colon cancer in an uncle and cousin. The patient states that his last colonoscopy was maybe about 5 years ago, although I could not find it in this EMR here. POST-OPERATIVE DIAGNOSES: 1. Some minimal patchy inflammation to the transverse and descending colon. This may be prep induced minute areas of ischemia. Biopsy x4 bites taken. 2. Moderate diverticulosis. 3. Mild hemorrhoids. 4. Tortuous colon which did require moving the patient onto his back to obtain cecal intubation. PROCEDURE: Colonoscopy with cold biopsy x4 bites. SURGEON: Bowen Freed M.D. ANESTHESIA: Monitored anesthesia care. BOWEL PREP: Good. Cody is a 74-year-old male who was brought to the endoscopy suite after discussing risks and benefits of the procedure. Informed consent was obtained for conscious sedation and colonoscopy with or without biopsy and/or polypectomy. We also discussed possibility of missed lesions. Pre-procedure exam was unremarkable. IV, oxygen, and monitors were placed. The patient was placed in the left lateral decubitus position. Sedation was administered and a digital rectal exam was performed and unremarkable. Colonoscope was passed into the rectum and slowly advanced all the way to the cecum. The patient did have somewhat tortuous colon and required moving the patient onto his back to obtain cecal intubation. Cecum was viewed and photographed. The colonoscope was slowly withdrawn and the mucosa was closed observed in a direct circumferential manner. The ascending colon was unremarkable. The transverse colon and descending colon revealed some minimal patchy inflammation. These were anywhere from 2 to 4 mm sites of what appeared to be superficial ulcerations. Cold biopsy x4 bites taken. The descending and sigmoid colon also revealed moderate diverticulosis. Retroflexion was performed and rectal mucosa was remarkable for some mild hemorrhoids, not acutely inflamed. Scope was removed. The patient tolerated the procedure well. The patient was monitored until that baseline status. Discharge instructions were reviewed and the patient was discharged in good condition. COMPLICATIONS: None. TOTAL TIME: 31 minutes. ESTIMATED BLOOD LOSS: About 1 mL. RECOMMENDATIONS/FOLLOW-UP: We will await results of path report to determine ideal followup interval. I would like to kindly thank Patel Foley for this referral. DMB: 12/13/2019 10:41:26 MODL: 12/13/2019 12:43:28 /[id number]
== END 2019-12-13 11:25 | disposition home or self-care (01) ==
LOC: VM.SDS 08:16
PROVIDERS: ATTEND Family Medicine
DX: Z12.11 Encounter for screening for malignant neoplasm of colon (principal); K52.9 Noninfective gastroenteritis and colitis, unspecified; K57.30 Diverticulosis of large intestine without perforation or abscess without bleeding; K64.9 Unspecified hemorrhoids; Q43.8 Other specified congenital malformations of intestine; E78.5 Hyperlipidemia, unspecified; I25.118 Atherosclerotic heart disease of native coronary artery with other forms of angina pectoris; F41.1 Generalized anxiety disorder; J45.909 Unspecified asthma, uncomplicated; N40.1 Benign prostatic hyperplasia with lower urinary tract symptoms; N13.8 Other obstructive and reflux uropathy; Z11.59 Encounter for screening for other viral diseases; Z88.0 Allergy status to penicillin; Z88.1 Allergy status to other antibiotic agents; Z88.8 Allergy status to other drugs, medicaments and biological substances; Z79.899 Other long term (current) drug therapy; Z79.82 Long term (current) use of aspirin; Z87.891 Personal history of nicotine dependence; Z80.0 Family history of malignant neoplasm of digestive organs; Z98.890 Other specified postprocedural states
CPT/HCPCS: 00812; 88305; J2704; J3010; J7120; U0002

== ENCOUNTER 2022-10-03 13:22 | Emergency (ER) | payer MEDICARE, OTHER ==
[2022-10-03 13:52] LABS: BASOPHILS PERCENT AUTO 0.5 % (0.2-1.2); EOSINOPHILS ABSOLUTE AUTO 0.2 x10^3/uL (0.0-0.5); HEMATOCRIT 37.8 % (40.0-52.0); HEMOGLOBIN 13.4 g/dL (14.0-18.0); IMMATURE GRAN ABSOLUTE AUTO 0.01 x10^3/uL (0.00-0.07); LYMPHOCYTES ABSOLUTE AUTO 0.5 x10^3/uL (1.0-4.8); LYMPHOCYTES PERCENT AUTO 6.6 % (25.0-50.0); MEAN CORPUSCULAR HEMOGLOBIN 31.4 pg (26.0-32.0); MEAN CORPUSCULAR HGB CONC 35.4 g/dL (32.0-36.0); MEAN CORPUSCULAR VOLUME 88.5 fL (78.0-93.0); MONOCYTES ABSOLUTE AUTO 0.4 x10^3/uL (0.0-0.8); NEUTROPHILS ABSOLUTE AUTO 6.7 x10^3/uL (1.8-7.7); NEUTROPHILS PERCENT AUTO 85.8 % (50.0-80.0); RED BLOOD CELL COUNT 4.27 x10^6/uL (4.5-6.0); WHITE BLOOD CELL COUNT,WBC 7.8 x10^3/uL (4.0-10.0)
[2022-10-03] MEDS ORDERED: Aspirin 81 MG Tab.Chew PO ONE (13:58)
[2022-10-03 14:06] LABS: PLATELET COUNT,PLT 167 x10^3/uL (130-400)
[2022-10-03 14:07] LABS: PROTHROMBIN TIME 10.6 SEC (9.5-12.2)
[2022-10-03 14:11] LABS: A/G RATIO 1.23; ALANINE AMINOTRANSFERASE,ALT 37 U/L (16-63); ALBUMIN 3.8 g/dL (3.4-5.0); ALKALINE PHOSPHATASE 91 U/L (46-116); ASPARTATE AMNIOTRANSFERASE,AST 21 U/L (15-37); BILIRUBIN TOTAL 0.8 mg/dL (0.2-1.0); BLOOD UREA NITROGEN,BUN 25 mg/dL (7-18); CALCIUM 8.8 mg/dL (8.5-10.1); CARBON DIOXIDE,CO2 28 mmol/L (21-32); CHLORIDE,CL 102 mmol/L (98-107); GLUCOSE RANDOM 135 mg/dL (70-99); POTASSIUM,K 4.4 mmol/L (3.5-5.1); PROTEIN TOTAL,TP 6.9 g/dL (6.4-8.2); SODIUM,NA 138 mmol/L (136-145)
[2022-10-03 14:13] LABS: ANION GAP 12.4 mmol/L (5-15); ESTIMATED GFR 78 mL/min (>=60)
[2022-10-03 14:41] VITALS: BP 113/62; PULSE 76
== END 2022-10-03 14:38 | disposition home or self-care (01) ==
LOC: VM.ED 13:22
DX: K52.9 Noninfective gastroenteritis and colitis, unspecified (principal); R07.89 Other chest pain; I25.2 Old myocardial infarction; I25.10 Atherosclerotic heart disease of native coronary artery without angina pectoris; E78.00 Pure hypercholesterolemia, unspecified; J45.909 Unspecified asthma, uncomplicated; Z79.82 Long term (current) use of aspirin; Z79.899 Other long term (current) drug therapy; Z88.0 Allergy status to penicillin; Z88.8 Allergy status to other drugs, medicaments and biological substances; Z88.1 Allergy status to other antibiotic agents
CPT/HCPCS: 71046; 80053; 84484; 85025; 85610; 93005; 99284; 99285; A9270

== ENCOUNTER 2025-04-12 09:24 | Day surgery (SDC) | payer MEDICARE, OTHER ==
[~2025-04-12 09:24] MED LIST changes: -Lactated Ringers 1,000 ML IV SCH; +Propofol 200 MG/20 ML SDV ONE; +fentaNYL 100 MCG/2 ML SDV ONE
[2025-04-12] MEDS: Lactated Ringers 1,000 ML IV SCH (09:46)
[2025-04-12] MEDS ORDERED: Propofol 200 MG/20 ML SDV ONE (11:41)
[2025-04-12 12:12] VITALS: BP 150/83; PULSE 58
== END 2025-04-12 13:15 | disposition home or self-care (01) ==
LOC: VM.SDS 09:24
PROVIDERS: ATTEND Student in an Organized Health Care Education/Training Program
DX: Z12.11 Encounter for screening for malignant neoplasm of colon (principal); I10 Essential (primary) hypertension; I25.10 Atherosclerotic heart disease of native coronary artery without angina pectoris; E66.9 Obesity, unspecified; Z80.0 Family history of malignant neoplasm of digestive organs; Z88.1 Allergy status to other antibiotic agents; Z88.8 Allergy status to other drugs, medicaments and biological substances; Z87.891 Personal history of nicotine dependence; Z79.899 Other long term (current) drug therapy; Z86.0100 Personal history of colon polyps, unspecified
CPT/HCPCS: 00811; 99100; J2704; J3010; J7120